=== PATIENT | male | born 1950 | race Caucasian/White ===

== ENCOUNTER 2018-10-25 09:24 | Emergency (ER) | payer OTHER ==
[2018-10-25] MEDS ORDERED: Adenosine* 3 MG/ML VIAL ONE (09:44)
[2018-10-25] MEDS ORDERED: NS 0.9% 1000 ML** 1,000 ML IV.FLUID IV ONE (09:51)
[2018-10-25] MEDS ORDERED: Adenosine* 3 MG/ML VIAL IV PUSH ONE (09:51)
--- NOTE | 2018-10-25 09:58 | ED ---
Palpitations / Dysrhythmia - HPI Summary HPI Summary: Pt is a 68 y/o M presenting to the ED with a chief complaint of dizziness onset this morning around 0830, after having about 3.5 cups of coffee. He reports lightheadedness with some nausea, and he thought it was low blood sugar but it was not alleviated with sugars that usually help him. He denies cocaine or amphetamine use. Pt denies any fever, chills, erythema of eyes, sore throat, CP, SOB, cough, abdominal pain, vomiting, dysuria, hematuria , myalgia, edema, or rash. - History of Current Complaint Chief Complaint: EDDysrhythmPalp Time Seen by Provider: 10/25/18 09:35 Hx Obtained From: Patient Onset/Duration: Sudden Onset, Lasting Minutes, Still Present Timing: Constant Severity Initially: Moderate Severity Currently: Moderate Character: Fast Aggravating: Caffeine Alleviating: Nothing Associated Signs & Symptoms: Lightheadedness, Dizzy, Nausea - Allergy/Home Medications Allergies/Adverse Reactions: Allergies Allergy/AdvReac Type Severity Reaction Status Date / Time No Known Allergies Allergy Verified 10/25/18 09:25 Home Medications: Home Medications Atorvastatin* [Lipitor*] 40 mg PO QPM 10/25/18 [History Confirmed 10/25/18] Ergocalciferol (Vitamin D2) [Vitamin D2] 25 mg PO DAILY 10/25/18 [History Confirmed 10/25/18] Insulin GLARGINE(*) [Lantus(*)] 80 units SUBCUT ONCE 10/25/18 [History Confirmed 10/25/18] Lisinopril TAB* [Prinivil TAB*] 40 mg PO DAILY 10/25/18 [History Confirmed 10/25] Stuart-3S/Dha/Epa/Fish Oil [Fish Oil 1,200 mg Softgel] 1 each PO DAILY 10/25/18 [ History Confirmed 10/25/18] metFORMIN* [Glucophage 500 MG TAB *] 2,000 mg PO DAILY 10/25/18 [History Confirmed 10/25/18] PMH/Surg Hx/FS Hx/Imm Hx Previously Healthy: Yes Endocrine/Hematology History: Reports: Hx Diabetes Denies: Hx Thyroid Disease Respiratory History: Denies: Hx Chronic Obstructive Pulmonary Disease (COPD) Infectious Disease History: No Infectious Disease History: Denies: Traveled Outside the [place] in Last 30 Days - Family History Known Family History: Negative: Renal Disease - Social History Lives: With Family Hx Substance Use: No Substance Use Type: Reports: None Review of Systems Negative: Fever, Chills Negative: Erythema Negative: Sore Throat Negative: Chest Pain Negative: Shortness Of Breath, Cough Positive: Nausea. Negative: Abdominal Pain, Vomiting Negative: dysuria, hematuria Negative: Myalgia, Edema Negative: Rash Neurological: Other - lightheaded, dizzy All Other Systems Reviewed And Are Negative: Yes Physical Exam - Summary Physical Exam Summary: Constitutional: Well-developed, Well-nourished, Alert. (-) Distressed Skin: Warm, Dry HENT: Normocephalic; Atraumatic Eyes: Conjunctiva normal Neck: Musculoskeletal ROM normal neck. (-) JVD, (-) Stridor, (-) Tracheal deviation Cardio: Rhythm regular, rate rapid, Heart sounds normal; Intact distal pulses; The pedal pulses are 2+ and symmetric. Radial pulses are 2+ and symmetric. (-) Murmur Pulmonary/Chest wall: Effort normal. (-) Respiratory distress, (-) Wheezes, (-) Rales Abd: Soft, (-) tenderness, (-) Distension, (-) Guarding, (-) Rebound Musculoskeletal: (-) Edema Lymph: (-) Cervical adenopathy Neuro: Alert, Oriented x3 Psych: Mood and affect Normal Triage Information Reviewed: Yes Vital Signs On Initial Exam: Initial Vitals Temp Pulse Resp BP Pulse Ox 98.2 F 174 20 145/90 96 10/25/18 09:25 10/25/18 09:25 10/25/18 09:25 10/25/18 09:25 10/25/18 09:25 Vital Signs Reviewed: Yes Diagnostics - Vital Signs Vital Signs Temp Pulse Resp BP Pulse Ox 10/25/18 09:25 98.2 F 174 20 145/90 96 - Laboratory Result Diagrams: 10/25/18 10:01 10/25/18 10:01 Lab Statement: Any lab studies that have been ordered have been reviewed, and results considered in the medical decision making process. - Radiology CXR Radiology Interpretation Completed By: Radiologist Summary of Radiographic Findings: No active cardiopulmonary disease is noted. ED physician has reviewed this report. - EKG 0935 Cardiac Rate: Other Rate - 172bpm EKG Rhythm: SVT ST Segment: Normal Ectopy: None Summary of EKG Findings: An EKG at 0935 shows SVT at 172bpm, there is no STEMI. 0954 Cardiac Rate: Tachycardia - 112bpm EKG Rhythm: Sinus Tachycardia ST Segment: Normal Ectopy: None EKG Comparison: Other - pt is no longer in SVT from prior EKG Summary of EKG Findings: EKG at 0954 shows sinus tachycardia at 112bpm, no STEMI. Re-Evaluation - Re-Evaluation 1st re-eval Re-Evaluation Time: 12:02 Change: Improved Comment: Pt states he is feeling better, and is agreeable to being d/c'ed home with instructions to moderate caffeine intake. Course/Dx - Course Course Of Treatment: Pt is a 68 y/o M presenting to the ED with a chief complaint of lightheadedness onset around 0830 this morning after drinking about 3.5 cups of coffee. He reports lightheadness with associated nausea. He denies fever, chills, erythema of eyes, sore throat, CP, SOB, cough, abdominal pain, vomiting, dysuria, hematuria, myalgia, edema, or rash. He also denies hx of cocaine or amphetamine use. Upon exam, the pt has a relatively nml exam other than a rapid rate. EKG at 0935 shows SVT at 172bpm, no STEMI. Pt was given Adenosine to slow HR, and at bedside the pt's HR went down from the 170s to the 120s. EKG at 0954 shows sinus tachycardia at 112bpm, no STEMI. CXR shows no active cardiopulmonary disease. The pt's lactic acid is 3.5, and his first troponin is 0.03. I discussed the results with the pt at 1202, he stated he is feeling better and is agreeable to go home. He will be d/c'ed with dx including SVT and caffeine toxicity, and instructions to f/u with his PCP and moderate his caffeine intake. He is agreeable with this plan. - Diagnoses Provider Diagnoses: SVT (supraventricular tachycardia), Caffeine toxicity Discharge - Sign-Out/Discharge Documenting (check all that apply): Patient Departure Patient Received Moderate/Deep Sedation with Procedure: No - Discharge Plan Condition: Stable Disposition: HOME Referrals: Samuel Nuñez MD [Primary Care Provider] - Additional Instructions: Please moderate your caffeine intake upon returning home. Follow up with your primary care provider in 2-3 days. Return to the ED with any new or worsening symptoms. - Attestation Statements Document Initiated by Scribe: Yes Documenting Scribe: Stephie Wisdom Provider For Whom Tyrelle is Documenting (Include Credential): Zeus Dumont MD. Scribe Attestation: IStephie, scribed for Zeus Dumont MD. on 10/25/18 at 1203. Status of Scribe Document: Ready
[2018-10-25 10:15] LABS: ABS Basophils 0.1 10^3/ul (0-0.2); ABS Eosinophils 0.1 10^3/ul (0-0.6); ABS Lymphocytes 2.3 10^3/ul (1.0-4.8); ABS Monocytes 0.7 10^3/ul (0-0.8); ABS Neutrophils 3.6 10^3/ul (1.5-7.7); ABS Nucleated RBC 0 10^3/ul; Eosinophil % 1.3 %; Hematocrit 38 % (36-46); Hemoglobin 12.6 g/dL (14.0-18.0); Lymphocyte % 34.2 %; Mean Corpuscular HGB Conc 33 g/dL (31-36); Mean Corpuscular Hemoglobin 31 pg (27-31); Mean Corpuscular Volume 93 fL (80-94); Mean Platelet Volume 8.3 fL (7.4-10.4); Nucleated Red Blood Cells % 0.1; Platelet Count 250 10^3/uL (150-450); Red Blood Count 4.08 10^6 /uL (4.18-5.48); Red Cell Distribution Width 16 % (10.5-15); White Blood Count 6.7 10^3/uL (3.5-10.8)
[2018-10-25 10:20] LABS: Albumin 4.4 g/dL (3.2-5.2); Albumin/Globulin Ratio 1.5 (1-3); BUN/Creatinine Ratio 16.5 (8-20); EGFR African American 64.7 (>60); EGFR Non-African American 53.5 (>60); Total Bilirubin 0.4 mg/dL (0.2-1.0); Total Protein 7.4 g/dL (6.4-8.9); Troponin I 0.03 ng/mL (<0.04)
[2018-10-25] MEDS ORDERED: NS 0.9% 1000 ML** 1,000 ML IV ONE (10:50)
[2018-10-25 10:56] LABS: T4, Total 8.15 mcg/dL (6.09-12.23)
[2018-10-25 11:00] LABS: TSH (Thyroid Stimulating Horm) 1.51 mcIU/mL (0.34-5.60)
[2018-10-25 11:28] LABS: Potassium 4.2 mmol/L (3.5-5.0)
[2018-10-25 12:35] VITALS: BP 141/90
== END 2018-10-25 12:26 | disposition home or self-care (01) ==
LOC: ED 09:24
DX: I47.1 Supraventricular tachycardia (principal); R94.31 Abnormal electrocardiogram [ECG] [EKG]; T43.611A Poisoning by caffeine, accidental (unintentional), initial encounter; E11.9 Type 2 diabetes mellitus without complications; Z79.84 Long term (current) use of oral hypoglycemic drugs
CPT/HCPCS: 36415; 71045; 80053; 83605; 84436; 84443; 84484; 85025; 85379; 93005; 96374; 99284; J0153